=== PATIENT | female | born 1985 | race American Indian/Alaskan Native ===

== ENCOUNTER 2019-11-20 09:15 | Outpatient (CLI) | payer OTHER ==
[2019-11-20 10:44] VITALS: BP 119/75
== END 2019-11-20 11:05 | disposition home or self-care (01) ==
LOC: TRG 09:15
PROVIDERS: ATTEND Obstetrics & Gynecology
DX: O47.1 False labor at or after 37 completed weeks of gestation (principal); Z3A.36 36 weeks gestation of pregnancy

== ENCOUNTER 2019-12-08 12:00 | Outpatient (CLI) | payer OTHER ==
[2019-12-08 12:23] VITALS: BP 129/85
== END 2019-12-08 13:14 | disposition home or self-care (01) ==
LOC: TRG 12:00
PROVIDERS: ATTEND Obstetrics & Gynecology
DX: O47.1 False labor at or after 37 completed weeks of gestation (principal); Z3A.40 40 weeks gestation of pregnancy
CPT/HCPCS: 59025

== ENCOUNTER 2019-12-08 16:10 | Outpatient (CLI) | payer OTHER ==
[2019-12-08 16:27] VITALS: BP 130/88
== END 2019-12-08 17:00 | disposition home or self-care (01) ==
LOC: TRG 16:10
PROVIDERS: ATTEND Obstetrics & Gynecology
DX: O47.1 False labor at or after 37 completed weeks of gestation (principal); Z3A.40 40 weeks gestation of pregnancy
CPT/HCPCS: 59025